=== PATIENT | female | born 1955 | race Two or more races ===

== ENCOUNTER 2020-08-04 23:30 | Emergency (ER) | payer MEDICAID, OTHER ==
[~2020-08-04] VITALS: Ht 162.6 cm; Wt 90.0 kg
--- NOTE | 2020-08-04 23:51 | NUR ---
Patient denied need for ice. Elevated extremity.
[2020-08-05] MEDS ORDERED: HYDROcodone/APAP 5/325 TABLET PO ONE
[2020-08-05] MEDS ORDERED: HYDROmorphone 1 MG/ML, 1ML INJ IM ONE
[2020-08-05 00:35] VITALS: BP 140/77
== END 2020-08-05 01:28 | disposition home or self-care (01) ==
LOC: ED 08-05
DX: S82.452A Displaced comminuted fracture of shaft of left fibula, initial encounter for closed fracture (principal); S82.252A Displaced comminuted fracture of shaft of left tibia, initial encounter for closed fracture; G89.11 Acute pain due to trauma; M25.572 Pain in left ankle and joints of left foot; I10 Essential (primary) hypertension; E11.9 Type 2 diabetes mellitus without complications; W01.0XXA Fall on same level from slipping, tripping and stumbling without subsequent striking against object, initial encounter; Y93.89 Activity, other specified; Y92.59 Other trade areas as the place of occurrence of the external cause; Y99.8 Other external cause status
CPT/HCPCS: 29515; 99283